=== PATIENT | female | born 1965 | race Caucasian/White ===

== ENCOUNTER 2018-05-18 00:39 | Outpatient (CLI) | payer MEDICARE, MEDICAID | END 2018-05-18 23:59 | disposition home or self-care (01) | LOC: DIABETIC 00:39 | PROVIDERS: ATTEND Family Medicine | DX: Z71.3 Dietary counseling and surveillance (principal); Z93.2 Ileostomy status; R63.0 Anorexia; Z68.20 Body mass index [BMI] 20.0-20.9, adult | CPT/HCPCS: 97802 ==

== ENCOUNTER 2018-08-03 04:35 | Outpatient (CLI) | payer MEDICARE, MEDICAID | END 2018-08-03 23:59 | disposition home or self-care (01) | LOC: DIABETIC 04:35 | PROVIDERS: ATTEND Family Medicine | DX: Z71.3 Dietary counseling and surveillance (principal); Z93.2 Ileostomy status; R63.4 Abnormal weight loss | CPT/HCPCS: 97802 ==